=== PATIENT | male | born 1985 | race Hispanic/Latino ===

== ENCOUNTER 2021-10-06 14:54 | Emergency (ER) | payer SELFPAY ==
[2021-10-06] MEDS ORDERED: Xylocaine 1% w/ Epi 1:100K 10 ML VIAL ONE (17:02)
[2021-10-06] MEDS ORDERED: Lidocaine 1% PF 5 ML VIAL ONE (17:02)
[2021-10-06] MEDS ORDERED: Bacitracin 1 PK ONE (17:42)
[2021-10-06] MEDS ORDERED: Boostrix 0.5 ML (Tdap) VIAL ONE (18:04)
== END 2021-10-06 18:30 | disposition home or self-care (01) ==
LOC: ERS 14:54
DX: S61.216A Laceration without foreign body of right little finger without damage to nail, initial encounter (principal); Z23 Encounter for immunization; W22.8XXA Striking against or struck by other objects, initial encounter
CPT/HCPCS: 12002; 90471; 90715